=== PATIENT | male | born 1955 | race Caucasian/White ===

== ENCOUNTER → 2017-08-13 | Outpatient (REF) ==
--- NOTE | 2017-08-13 16:45 | REP ---
Partial lumbar spine series: Three views. History: Degenerative disc disease. Findings: Lumbar vertebral body heights are preserved and alignment is normal. There is diffuse degenerative disc disease with discogenic spurring at each visualized thoracic and lumbar level. There is some mild disc space narrowing at L2-3, L3-4 and L4-5 along with discogenic spurring. There is mild osteoarthritic facet hypertrophy bilaterally at L4-5 and L5-S1. Sacrum and SI joints are intact. Pedicles and posterior elements are intact. Vascular calcification is noted in a normal caliber aorta. There is advanced osteoarthritis of the left hip and mild osteoarthritis of the right hip. Impression: Degenerative spondylosis changes diffusely. Advanced osteoarthritis left hip. Signed by Jose Maria Ochoa MD 08/13/2017 05:05 P
--- NOTE | 2017-08-13 16:50 | REP ---
Left hip series: Two views: History: Degenerative disease. No comparison views. Findings: There is severe osteoarthritis of the left hip with joint space narrowing superiorly, sclerosis, and osteophyte formation. There is slight flattening of the weightbearing surface of the femoral head. There is periarticular soft tissue ossicles superiorly. No bony erosive changes seen. Impression: Severe osteoarthritis left hip. Signed by Jose Maria Ochoa MD 08/13/2017 05:07 P
== END ==
LOC: M SMT 14:13
PROVIDERS: ATTEND Internal Medicine
DX: Z02.71 Encounter for disability determination (principal)

== ENCOUNTER 2025-05-12 07:54 | Day surgery (SDC) | payer MEDICARE ==
[~2025-05-12] VITALS: Ht 175.3 cm; Wt 109.7 kg
[~2025-05-12 07:54] MED LIST: ATOR1TAB21 PO; CALC500C14 PO; DOXY100T27 PO; HUMI40KI SC; LOSA100T5 PO; PHENYLEPHRINE 10% OPHTH SOL 5ML OS PRN; VITA100093 PO
[2025-05-12] MEDS: CYCLOPENTOLATE 1% OPHTH SOLN 2 ML BTL OS SCH (09:26)
[2025-05-12] MEDS: PHENYLEPHRINE 2.5% OPHTH SOL 2ML OS SCH (09:26)
[2025-05-12] MEDS: TROPICAMIDE 1% OPHTH SOLN 15ML OS SCH (09:26)
[2025-05-12] MEDS: LIDOCAINE 3.5% 1 ML OPHTH TOPICAL GEL OU ONE (09:26)
[2025-05-12] MEDS: OFLOXACIN 0.3 % (OCUFLOX) OPTH SOL 5ML OS ONE (09:26)
[2025-05-12] MEDS ORDERED: MIDAZOLAM INJ 2 MG/2 ML VIAL As Ordered ONE (09:37)
[2025-05-12] MEDS: LIDOCAINE 1% SDV 5 ML VIAL As Ordered ONE (10:22)
[2025-05-12] MEDS: CEFUROXIME 1 MG/0.1 ML INTRACAMERAL INJ As Ordered ONE (10:22)
[2025-05-12] MEDS: BSS IRRIG/VANCO(10MG)/TOBRA(5MG)/EPINEPH(1:1000-0.5CC)500ML BAG-ORONLY As Ordered ONE (10:25)
[2025-05-12 10:35] VITALS: BP 143/81; TEMP 97.2; O2SAT 96
== END 2025-05-12 10:53 | disposition home or self-care (01) ==
LOC: M SDC 07:54
PROVIDERS: ATTEND Ophthalmology
DX: H25.12 Age-related nuclear cataract, left eye (principal); I10 Essential (primary) hypertension; E78.00 Pure hypercholesterolemia, unspecified; Z79.899 Other long term (current) drug therapy; Z79.620 Long term (current) use of immunosuppressive biologic; Z88.5 Allergy status to narcotic agent
CPT/HCPCS: 66984; J0697; J2250; J3010; V2632